=== PATIENT | male | born 2000 | race African-American/Black ===

== ENCOUNTER 2019-03-14 18:53 | Emergency (ER) | payer SELFPAY | END 2019-03-14 19:26 | disposition home or self-care (01) | LOC: ERS 18:53 | DX: M79.645 Pain in left finger(s) (principal) | CPT/HCPCS: 99283 ==

== ENCOUNTER 2019-03-21 18:53 | Emergency (ER) | payer SELFPAY ==
--- NOTE | 2019-03-21 19:38 | RAD ---
XR Hand Lt 3 View STANDARD History: Finger numbness Comparison: None. Findings: No acute fracture or malalignment. No erosions or periostitis. There is be soft tissue swel ling on the distal phalanx of the ring finger. Impression: Soft tissue swelling around the distal phalanx ring finger. No acute underlying osseous a bnormality.
== END 2019-03-21 20:07 | disposition home or self-care (01) ==
LOC: ERS 18:53

== ENCOUNTER 2019-03-23 13:06 | Emergency (ER) | payer SELFPAY | END 2019-03-23 13:43 | disposition home or self-care (01) | LOC: ERS 13:06 | DX: M79.645 Pain in left finger(s) (principal) | CPT/HCPCS: 99283 ==